=== PATIENT | male | born 2000 | race Caucasian/White ===

== ENCOUNTER 2021-12-09 16:04 | Emergency (ER) | payer BC, SELFPAY ==
[2021-12-09 16:22] VITALS: BP 119/76; PULSE 69; RESP 20; TEMP 36.3; O2SAT 100
--- NOTE | 2021-12-09 16:46 | ED.SKABFB ---
HPI - Skin/Abscess/Foreign Bdy General Chief complaint: Skin/Abscess/Foreign Body Stated complaint: rash Time Seen by Provider: 12/09/21 16:47 Source: patient, RN notes reviewed and old records reviewed Mode of arrival: ambulatory Limitations: no limitations History of Present Illness HPI narrative: 21-year-old male patient presents to [facility] with complaints of rash on abdomen. First noticed rash 2 weeks ago, applied cream that he picked up at [employer], and rash went away. Started to notice rash returned yesterday on stomach, sides, back, and right arm. Denies itching, pain, or drainage with rash. States it does not hurt, but it is bothersome. Does not use gym. No other family members have similar rash. Does have 2 dogs. Denies fever, muscle aches or chills. Related Data Allergies Allergy/AdvReac Type Severity Reaction Status Date / Time No Known Allergies Allergy Verified 12/09/21 16:37 Review of Systems Review of Systems: CONSTITUTIONAL: Denies malaise, chills, sweats, fatigue or fever. EYES: Denies visual changes, redness, or discharge. ENT: Denies rhinorrhea, congestion, sinus pain, otalgia or sore throat. CARDIOVASCULAR: Denies chest pain, palpitations, or edema. RESPIRATORY: Denies cough or dyspnea. GASTROINTESTINAL: Denies abdominal pain, nausea, vomiting, diarrhea, bloody, or mucous stools. GENITOURINARY: Denies dysuria or hematuria. SKIN: Reports round rash on sides, abdomen, and back. Denies itching, pain or drainage. MUSCULOSKELETAL: Denies back pain, joint pain, or myalgia. NEUROLOGIC: Denies numbness, weakness, or headache. PSYCHIATRIC: Denies anxiety or depression. All systems reviewed & are unremarkable except as noted in HPI and below PMFSH Comments At time of signature, agree with nursing past medical, surgical, social and family history. There is no relevant family history pertinent to the presenting complaint Exam Narrative: GENERAL: Well-appearing, well-nourished, male and in no acute distress. Pleasant, cooperative, casually dressed. HEAD: Normocephalic, atraumatic. EYES: conjunctivae clear, and EOMI. No nystagmus. ENT: Nares clear,, no rhinorrhea or epistaxis. Mucous membranes moist. NECK: Supple. No lymphadenopathy. No jugular venous distension, thyromegaly, or carotid bruits. CHEST: No respiratory distress. Clear to auscultation anterior and posterior. No bony deformities, no asymmetry. Speaks in full sentences. HEART: Regular rate and rhythm. No murmur heard. Normal peripheral pulses. ABDOMEN: Soft, nontender, nondistended, normal active bowel sounds. EXTREMITIES: Normal range of motion. No edema. Normal strength and sensation. SKIN: [place], warm, dry. Annular erythema with central clearing right and left mid abdomen, left flank, and right wrist. No drainage. Nonpruritic. NEURO: Alert and oriented x3. No focal deficits. Cranial nerves II through XII grossly intact PSYCH: Normal mood and affect Course Course Emergency Course: Patient is aware of diagnosis, understands and agrees to treatment plan. Anticipatory guidance given. Patient agrees to follow-up as directed and is aware of reasons to seek care at the emergency department. Portions of this record may have been created with voice recognition software Level of Care: Express Care Visit Vital Signs Vital signs: Vital Signs Temperature 36.3 C L 12/09/21 16:22 Pulse Rate 69 12/09/21 16:22 Respiratory Rate 20 12/09/21 16:22 Blood Pressure 119/76 12/09/21 16:22 Pulse Oximetry 100 12/09/21 16:22 Temperature 36.3 C L 12/09/21 16:22 Pulse Rate 69 12/09/21 16:22 Respiratory Rate 20 12/09/21 16:22 Blood Pressure 119/76 12/09/21 16:22 Pulse Oximetry 100 12/09/21 16:22 Reviewed MDM - Skin/Abscess/Foreign Bdy MDM Narrative Medical decision making narrative: Does not appear at this time to be erythema multiforme, bullous, SJS, TEN; no evidence at this time to suggest RMSF, endocarditis or Lyme disease; ammy
== END 2021-12-09 17:06 | disposition home or self-care (01) ==
PROVIDERS: Emergency Provider Nurse Practitioner Family
DX: B35.4 Tinea corporis (principal)
CPT/HCPCS: 99213; G0463

== ENCOUNTER 2024-08-04 15:15 | Emergency (ER) | payer BC, SELFPAY ==
--- NOTE | ~2024-08-04 | XR_ITS ---
XR hand RT min 3V Ordering provider: Grace Shah APRN History: . punched wall on 5 days ago pain 5th metacarpal . Comparison: None. FINDINGS: BONES: fracture of the proximal metaphysis of the fifth metacarpal bone. No significant displacement seen. No other fractures noted.. JOINT SPACES: Normal. SOFT TISSUES: Normal. IMPRESSION: Fracture of the proximal metaphysis of the right fifth metacarpal bone. Reviewed, dictated and finalized at location A.
[2024-08-04 15:24] VITALS: BP 121/83; PULSE 85; RESP 18; TEMP 37.3; O2SAT 100
--- NOTE | 2024-08-04 15:40 | ED.UPPEXIN ---
HPI - Extremity Injury (Upper) General Chief Complaint: Extremity Injury, Upper Stated Complaint: Rt Hand Swelling Source: patient Mode of arrival: ambulatory Limitations: no limitations History of Present Illness HPI narrative: 24-year-old male presented for complaint of right hand pain and swelling after punching a door 6 days ago. Pain is reported to the 5th metacarpal area. Pt is right hand dominant. Has not taken anything for pain or applied ice. Denies pain at rest. Related Data Home Medications Medication Instructions Recorded Confirmed No Home Medications 03/16/24 08/04/24 Allergies Allergy/AdvReac Type Severity Reaction Status Date / Time No Known Allergies Allergy Verified 08/04/24 15:38 Review of Systems Review of Systems: CONSTITUTIONAL: Denies body aches, fever, chills CARDIOVASCULAR: Denies chest pain, palpitations, or edema. RESPIRATORY: Denies cough or dyspnea. SKIN: Denies wounds. MUSCULOSKELETAL: Reports right hand pain NEUROLOGIC: Denies headache, numbness, tingling, or weakness. PSYCH: Denies depression or anxiety. All systems reviewed & are unremarkable except as noted in HPI and below PMFSH Family History Family History Grandparent Skin cancer Social History Social History Smoking status: Never smoker Tobacco type: smokeless tobacco Smokeless tobacco user: chewing tobacco Alcohol intake: current Substance use: never Substance use type: does not use Living arrangements: alone Occupation/Education: occupation Additional occupation/education comments: [employer] Gender identity (if verbalized by the patient): Male Sexual Orientation (if Verbalized by the Patient): Straight or Heterosexual Comments At time of signature, I have reviewed and agree with nursing past medical, surgical, social and family history unless otherwise noted. Please see nursing chart for further information. There is no relevant family history pertinent to the presenting complaint Exam Narrative: GENERAL: Well-appearing CHEST: Speaks in full sentences. No respiratory distress. HEART: Regular rate and rhythm. Normal and equal peripheral pulses. EXTREMITIES: Right hand swelling to dorsal aspect over 5th metacarpal, tender with palpation. Hand has normal strength and sensation; decreased range of motion due to endorses pain with movement. No open wounds, ulse palpable and equal bilaterally, skin warm, dry, pink. Capillary refill less than 3 seconds. SKIN: Warm, dry NEURO: Alert and oriented x3. PSYCH: Normal mood and affect Course Course Emergency Course: Patient is aware of diagnosis, understands and agrees to treatment plan. Anticipatory guidance given. Patient agrees to follow-up as directed and is aware of reasons to seek care at the emergency department. Portions of this record may have been created with voice recognition software Level of Care: Express Care Visit Vital Signs Vital signs: Vital Signs Temperature 99.2 F 08/04/24 15:24 Pulse Rate 85 08/04/24 15:24 Respiratory Rate 18 08/04/24 15:24 Blood Pressure 121/83 08/04/24 15:24 Pulse Oximetry 100 08/04/24 15:24 Oxygen Delivery Room Air 08/04/24 15:24 Temperature 99.2 F 08/04/24 15:24 Pulse Rate 85 08/04/24 15:24 Respiratory Rate 18 08/04/24 15:24 Blood Pressure 121/83 08/04/24 15:24 Pulse Oximetry 100 08/04/24 15:24 Oxygen Delivery Room Air 08/04/24 15:24 Reviewed Procedures Orthopedic Splinting/Casting right hand: Splinting/Casting Date: 08/04/24 OCL: ulnar gutter Pre-Procedure Neuro Vascular Exam: normal Post-Procedure Neuro Vascular Exam: normal Other Orthopedic Equipment: other (sling) MDM - Extremity Injury (Upper) MDM Narrative Medical decision making narrative: Discussed physical exam findings and xray. Advised supportive measures and signs/symptoms to go to the ER. Pt is appropriate for outpt treatment and f/u.. Differential Diagnosis Differential diagnosis: Likely sprain and strain of wrist, fracture of wrist, finger sprain, dislocation of finger and fracture of hand Imaging Data Radiologist's impression: Patient: Gunnar Vazquez : 2000 MR#: [id number] Age: 24 Acct:[id number] Loc: [id number] ADM Date: 08/04/24Attending Dr: Ordering Physician: Grace Shah APRN Date of Service: 08/04/24 Procedure(s): XR hand RT min 3V Accession Number(s): [id number] cc: Grace Shah APRN; UNKNOWN,DOCTOR~ XR hand RT min 3V Ordering provider: Grace Shah APRN History: . punched wall on 5 days ago pain 5th metacarpal . Comparison: None. FINDINGS: BONES: fracture of the proximal metaphysis of the fifth metacarpal bone. No significant displacement seen. No other fractures noted.. JOINT SPACES: Normal. SOFT TISSUES: Normal. IMPRESSION: Fracture of the proximal metaphysis of the right fifth metacarpal bone Discharge Plan Discharge Clinical Impression: Fracture of hand Qualifiers: Encounter type: initial encounter Fracture type: closed Laterality: right Qualified Code(s): S62.91XA - Unspecified fracture of right wrist and hand, initial encounter for closed fracture Patient Disposition: Home, Self-Care Condition: Stable Instructions: Boxer Fracture (ED) Additional Instructions: Rest, ice and elevate the right hand Motrin 600mg every 8 hours, as needed, for pain (take with food). Tylenol 1000mg every 8 hours. Keep splint clean, dry and in place. Use garbage bag while showering to keep splint dry. Use sling Go to the ER immediately for increased pain, tingling/numbness, swelling, redness, etc Follow up with Hand specialist in 3 days for further evaluation - please call today for an appointment. Prescriptions: No Action No Home Medications Follow-up/Referrals: Shashi Holliday MD [Physician] - UNKNOWN,DOCTOR [Primary Care Provider] -
== END 2024-08-04 16:28 | disposition home or self-care (01) ==
PROVIDERS: Emergency Provider Nurse Practitioner Family
DX: S62.306A Unspecified fracture of fifth metacarpal bone, right hand, initial encounter for closed fracture (principal); W22.8XXA Striking against or struck by other objects, initial encounter; F17.220 Nicotine dependence, chewing tobacco, uncomplicated
CPT/HCPCS: 29125; 73130; 99214; A4565; G0463

== ENCOUNTER 2024-08-08 16:22 | Outpatient (CLI) | payer BC, SELFPAY ==
--- NOTE | ~2024-08-08 | XR_ITS ---
XR hand RT min 3V Ordering provider: Ramona Amador PA-C History: . S62.90XA - Unspecified fracture of unspecified wrist and ... . Comparison: August 04, 2024 FINDINGS: BONES: Comminuted fracture in the proximal metaphysis of the fifth metacarpal bone. No change in alig nment. Status post placement in a cast. JOINT SPACES: Normal. SOFT TISSUES: Normal. IMPRESSION: Comminuted fracture in the proximal metaphysis of the fifth metacarpal bone unchanged from previous e xamination. Reviewed, dictated and finalized at location A. IMPRESSION: Comminuted fracture in the proximal metaphysis of the fifth metacarpal bone unc hanged from previous examination.
== END 2024-08-08 16:23 | disposition home or self-care (01) ==
PROVIDERS: Visit Provider Physician Assistant Surgical
DX: S62.396A Other fracture of fifth metacarpal bone, right hand, initial encounter for closed fracture (principal)
CPT/HCPCS: 73130

== ENCOUNTER 2024-08-22 08:36 | Outpatient (CLI) | payer BC, SELFPAY ==
--- NOTE | ~2024-08-22 | XR_ITS ---
XR hand RT min 3V Ordering provider: Ramona Amador PA-C History: . S62.90XA - Unspecified fracture of unspecified wrist and ... . Comparison: August 08, 2024 FINDINGS: BONES: Fracture at the base of the fifth metacarpal bone unchanged from previous examination. Status post removal of the cast. JOINT SPACES: Normal. SOFT TISSUES: Normal. IMPRESSION: Fracture at the base of the fifth metacarpal bone unchanged from previous examination. Status post re moval of the cast. Reviewed, dictated and finalized at location A. [employer] IMPRESSION: Fracture at the base of the fifth metacarpal bone unchanged from previous exami nation. Status post removal of the cast.
== END 2024-08-22 08:37 | disposition home or self-care (01) ==
LOC: ANHIMG 08:37
PROVIDERS: Visit Provider Physician Assistant Surgical
DX: S62.316A Displaced fracture of base of fifth metacarpal bone, right hand, initial encounter for closed fracture (principal); X58.XXXA Exposure to other specified factors, initial encounter
CPT/HCPCS: 73130

== ENCOUNTER 2024-09-05 15:30 | Outpatient (CLI) | payer BC, SELFPAY ==
--- NOTE | ~2024-09-05 | XR_ITS ---
EXAM: XR hand RT min 3V DATE: 09/05/2024 16:04 HISTORY: S62.90XA - Unspecified fracture of unspecified wrist and ... . COMPARISON: 08/22/2024. FINDINGS: Normal mineralization. Redemonstration of the mildly comminuted proximal right fifth metac arpal fracture, with evolving interval healing change. No new acute fracture or dislocation. No lytic or blastic lesion. Joint spaces are maintained. No erosion or periosteal change. Soft tissues within normal limits. IMPRESSION: Healing proximal right fifth metacarpal fracture. Reviewed, dictated and finalized at location K. L DECORATOR
== END 2024-09-05 15:31 | disposition home or self-care (01) ==
PROVIDERS: Visit Provider Physician Assistant Surgical
DX: S62.91XD Unspecified fracture of right hand, subsequent encounter for fracture with routine healing (principal)
CPT/HCPCS: 73130